=== PATIENT | male | born 1970 | race Two or more races ===

== ENCOUNTER 2022-02-01 13:01 | Outpatient (CLI) | payer OTHER | END 2022-02-01 13:04 | disposition home or self-care (01) | LOC: NUCLEAR 13:01 | PROVIDERS: ATTEND Internal Medicine | DX: I12.9 Hypertensive chronic kidney disease with stage 1 through stage 4 chronic kidney disease, or unspecified chronic kidney disease (principal); N18.1 Chronic kidney disease, stage 1 | CPT/HCPCS: 78708; A9539 ==